=== PATIENT | male | born 1960 | race Caucasian/White ===

== ENCOUNTER 2017-07-19 12:08 | Outpatient (CLI) | payer OTHER ==
--- NOTE | 2017-07-19 12:36 | RAD ---
TWO VIEWS OF THE CHEST: HISTORY: Post viral cough syndrome. COMPARISON: None. FINDINGS: Two views of the chest show a normal sized cardiomediastinal silhouette. Atherosclerotic calcificati ons are seen in the aorta. There is no evidence of consolidation, mass, or pleural effusion. Degene rative changes are seen in the spine. IMPRESSION: No evidence of acute cardiopulmonary disease. POS: [facility]
== END 2017-07-19 12:09 | disposition home or self-care (01) ==
LOC: MADRAD 12:08
PROVIDERS: ATTEND Obstetrics & Gynecology
DX: R05 Cough (principal)
CPT/HCPCS: 71046